=== PATIENT | female | born 1995 | race Caucasian/White ===

== ENCOUNTER 2017-04-04 12:08 | Emergency (ER) | payer MEDICAID ==
[2017-04-04 12:20] VITALS: BP 110/75; PULSE 74; RESP 18; TEMP 98.6; O2SAT 99
[2017-04-04] MEDS ORDERED: Tetracaine 0.5% Ophth 2 ML BOTTLE OU ONE (12:39)
[2017-04-04] MEDS ORDERED: Fluorescein 1 mg Ophthalmic Strip OU ONE (12:39)
[2017-04-04] MEDS ORDERED: Fluorescein 1 mg Ophthalmic Strip ONE (12:51)
--- NOTE | 2017-04-04 15:04 | ED PDOC ---
HPI: Eye Injury/Pain Time Seen by Provider: 04/04/17 12:25 Chief Complaint (Nursing): Eye Problem Chief Complaint (Provider): pink eye History Per: Patient Additional Complaint(s): pt c/o R eye irritation, redness and tearing since possibly scratching eye while wrestling with brother one week ago. no vision changes, purulent drainage , h/a, n/v, uri c/o. Past Medical History Reviewed: Historical Data, Nursing Documentation, Vital Signs Vital Signs: Last Vital Signs Temp 98.6 F 04/04/17 12:17 Pulse 74 04/04/17 12:17 Resp 18 04/04/17 12:17 BP 110/75 04/04/17 12:17 Pulse Ox 99 04/04/17 12:17 - Medical History PMH: No Chronic Diseases Denies: Chronic Kidney Disease - Family History Family History: States: No Known Family Hx - Social History Current smoker - smoking cessation education provided: No Alcohol: None Drugs: Denies - Home Medications Home Medications: Ambulatory Orders Medication Instructions Recorded Ibuprofen [Motrin] 600 mg PO Q8 PRN #21 tab 08/10/16 Polymyxin B Sulf/Trimethoprim 2 drop OD Q4 #1 drops 04/04/17 [Polymyxin B-Tmp Eye Drops] - Allergies Allergies/Adverse Reactions: Allergies Allergy/AdvReac Type Severity Reaction Status Date / Time No Known Allergies Allergy Verified 04/04/17 12:17 Review of Systems ROS Statement: Except As Marked, All Systems Reviewed And Found Negative Eyes: Positive for: Pain, Conjunctivae Inflammation Physical Exam - Reviewed Nursing Documentation Reviewed: Yes Vital Signs Reviewed: Yes - Physical Exam Appears: Positive for: Well, Non-toxic, No Acute Distress Skin: Positive for: Normal Color, Warm, DRY Eye Exam: Positive for: EOMI, PERRL, Conjunctival injection, Other (corneal abrasion R eye medially.) ENT: Positive for: Normal ENT Inspection Neck: Positive for: Normal, Painless ROM Cardiovascular/Chest: Positive for: Regular Rate, Rhythm Respiratory: Positive for: CNT, Normal Breath Sounds Neurologic/Psych: Positive for: Alert, Oriented - ECG O2 Sat by Pulse Oximetry: 99 Disposition - Clinical Impression Clinical Impression: Corneal abrasion, right - Patient ED Disposition Is Patient to be Admitted: No - Disposition Referrals: Isai Rossi MD [Staff Provider] - Disposition: Routine/Home Disposition Time: 15:06 Condition: GOOD Prescriptions: Polymyxin B Sulf/Trimethoprim [Polymyxin B-Tmp Eye Drops] 2 drop OD Q4 #1 drops Instructions: Corneal Abrasion (ED) Forms: [facility] ED School/Work Excuse
== END 2017-04-04 14:27 | disposition home or self-care (01) ==
LOC: H.ER 12:08
DX: H10.9 Unspecified conjunctivitis (principal)